=== PATIENT | male | born 1975 | race African-American/Black ===

== ENCOUNTER 2023-07-01 01:08 | Day surgery (SDC) | payer MEDICAID, SELFPAY ==
[2023-06-16 13:07] VITALS: BMI 31.9
--- NOTE | 2023-06-29 12:11 | SUR.PREOP ---
Message left with patient regarding upcoming procedure. Reviewed preop instructions, appointment times, and procedure prep.
--- NOTE | 2023-06-30 16:10 | PM.HPGS ---
History of Present Illness History of Present Illness Consent: Risks, benefits, and alternatives have been discussed and questions answered. Patient agrees to proceed with procedure. Chief complaint: unspecified abdominal pain Narrative: Mika Ford is a 47 year old male Referred for colonoscopy due to an abnormal CT scan. This scan it showed mild colonic wall thickening. Review of Systems Review of Systems: All systems reviewed & are unremarkable except as noted in HPI and below [facility] Social History Social History Smoking status: Current every day smoker Tobacco type: cigarettes Alcohol intake: former Substance use: current Substance use type: marijuana Other substance usage details: 1-2 times a week Living arrangements: alone Spiritual care concerns: No Meds Home Medications and Allergies Home Medications Medication Instructions Recorded Confirmed Type amlodipine 10 mg tablet 10 mg PO DAILY 06/16/23 06/16/23 History Allergies Allergy/AdvReac Type Severity Reaction Status Date / Time No Known Allergies Allergy Verified 07/01/23 13:09 Exam Const: General: alert Orientation/consciousness: patient oriented x3 Resp: Auscultation: clear to auscultation bilaterally Cardio: Rhythm: regular rhythm GI: GI Palp: Yes Soft to palpation and No Tenderness to palpation present (GI) Neuro: General: patient oriented x3 Assessment and Plan Assessment and plan (1) Abnormal CT scan, gastrointestinal tract: Code(s): R93.3 - Abnormal findings on diagnostic imaging of other parts of digestive tract Status: Acute Assessment and Plan: Colonoscopy with possible biopsy or polypectomy or cautery or injection of substances.
[2023-07-01 13:10] VITALS: BP 163/88; PULSE 75; RESP 20; TEMP 36.4; O2SAT 100
[2023-07-01] MEDS: LACTATED RINGERS 1,000 ML 150 ML IV CONT (13:22)
--- NOTE | 2023-07-01 13:33 | WPDANESEPPF ---
Anes - Initial Pre Proc Eval Procedure: Operation Date: 07/01/23 14:00 Proposed Procedures p Colonoscopy - Wilbert Alarcon MD Date/Time: 07/01/23 13:33 Surgeon: Wilbert Alarcon MD Pre Op Diagnosis: unspecified abdominal pain Patient Data Age: 47 Gender: M Height: 1.7 m Weight: 90.7 kg Last Vital Signs Temp 97.6 F 07/01/23 13:10 Pulse 75 07/01/23 13:10 Resp 20 07/01/23 13:10 BP 163/88 H 07/01/23 13:10 Pulse Ox 100 07/01/23 13:10 O2 Del Method Room Air 07/01/23 13:10 Allergies Allergy/AdvReac Type Severity Reaction Status Date / Time No Known Allergies Allergy Verified 07/01/23 13:09 Home Medications Medication Instructions Recorded Confirmed Type amlodipine 10 mg tablet 10 mg PO DAILY 06/16/23 06/16/23 History Patient hx anesthesia problems: none Family hx anesthesia problems: none Results Review: All pre-operative results and documents have been reviewed as part of the pre-operative evaluation. [facility] Social History Social History Smoking status: Current every day smoker Tobacco type: cigarettes Alcohol intake: former Substance use: current Substance use type: marijuana Other substance usage details: 1-2 times a week Living arrangements: alone Spiritual care concerns: No Anes - Eval Final PreProcedure Day of Procedure 07/01/23 13:33 Patient weight: obese Heart: regular rate and rhythm Lungs: clear to auscultation Airway: Mallampati scale class II Neurological: alert and oriented Last oral intake: >/= 8 hours ASA classification: III Emergent: no Anesthetic plan: proceed Anesthesia type and monitoring: general GIVS and standard monitoring Results Review: All pre-operative results and documents have been reviewed as part of the pre-operative evaluation. Informed Consent: The patient's anesthetic plan and its attendant risks and benefits were discussed with the patient/family/POA. Questions were solicited and answers provided to the satisfaction of the patient/family/POA.
[2023-07-01 14:27] VITALS: BP 130/85; PULSE 63; RESP 16; O2SAT 100
[2023-07-01 14:37] VITALS: BP 152/91; PULSE 59; RESP 15; O2SAT 100
[2023-07-01 14:47] VITALS: BP 149/91; PULSE 62; RESP 16; O2SAT 100
--- NOTE | 2023-07-01 15:00 | SUR.PHASEII ---
Discharge delay due to pt awaiting electric truck driver to arrive.
== END 2023-07-01 15:21 | disposition home or self-care (01) ==
PROVIDERS: PCP Internal Medicine Infectious Disease; Visit Provider Internal Medicine Gastroenterology
PROC: 0DJD8ZZ Inspection of Lower Intestinal Tract, Via Natural or Artificial Opening Endoscopic (ICD-10-PCS; CPT 45378; principal; 2023-07-01 14:00)
DX: D12.0 Benign neoplasm of cecum (principal); D12.4 Benign neoplasm of descending colon; K64.8 Other hemorrhoids; F17.210 Nicotine dependence, cigarettes, uncomplicated; F12.90 Cannabis use, unspecified, uncomplicated; E66.9 Obesity, unspecified; Z68.31 Body mass index [BMI] 31.0-31.9, adult
CPT/HCPCS: 45380; 88305; J2704; J7120